=== PATIENT | female | born 1990 ===

== ENCOUNTER 2022-02-01 06:50 | Day surgery (SDC) | payer OTHER ==
[~2022-02-01] VITALS: Ht 165.1 cm; Wt 59.4 kg
[~2022-02-01 06:50] MED LIST: METHIMAZOLE PO; PROPRANOLOL HCL10 MG PO
[2022-02-01] MEDS ORDERED: PERCOCET 5-3251 EACH PO (12:38)
== END 2022-02-01 17:25 | disposition home or self-care (01) ==
LOC: CIR.AMB 06:50
PROVIDERS: ATTEND Surgery
DX: D34 Benign neoplasm of thyroid gland (principal); E05.10 Thyrotoxicosis with toxic single thyroid nodule without thyrotoxic crisis or storm; Z88.2 Allergy status to sulfonamides; Z88.8 Allergy status to other drugs, medicaments and biological substances; I34.1 Nonrheumatic mitral (valve) prolapse; K21.9 Gastro-esophageal reflux disease without esophagitis